=== PATIENT | female | born 1975 | race Hispanic/Latino ===

== ENCOUNTER 2017-08-23 21:41 | Emergency (ER) | payer OTHER ==
[2017-08-23 21:41] VITALS: BMI 30.9
[2017-08-23 21:53] VITALS: O2SAT 99
--- NOTE | 2017-08-23 23:31 | ED PDOC ---
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 Pt states after the flight both legs were slightly swollen. Pt states that after she felt pain in the right foot and now the discomfort is in the right calf. Pt states today it was difficult for her to walk due to calf soreness. Past Medical History Reviewed: Historical Data, Nursing Documentation, Vital Signs Vital Signs: Last Vital Signs Temp 98.3 F 08/23/17 21:49 Pulse 88 08/23/17 21:49 Resp 18 08/23/17 21:49 BP 159/98 H 08/23/17 21:49 Pulse Ox 99 08/23/17 21:49 - Medical History PMH: HTN, Hyperlipidemia - Surgical History Surgical History: Tonsillectomy - Family History Family History: States: No Known Family Hx - Living Arrangements Living Arrangements: With Family - Social History Current smoker - smoking cessation education provided: No Alcohol: None Drugs: Denies - Home Medications Home Medications: Ambulatory Orders Medication Instructions Recorded Atorvastatin [Lipitor] 20 mg PO DAILY 08/23/17 Carvedilol [Coreg] 25 mg PO BID 08/23/17 Losartan [Cozaar] 50 mg PO BID 08/23/17 Multivit-Min/Iron/Folic Acid/K 1 tab PO DAILY 08/23/17 [Adults Multivitamin Caplet] Mycophenolate Sodium [Myfortic] 720 mg PO BID 08/23/17 Nitrofurantoin Macrocrystals 100 mg PO DAILY 08/23/17 [Macrobid] Pantoprazole Sodium [Protonix] 40 mg PO DAILY 08/23/17 Sulfamethoxazole/Trimethoprim 1 tab PO MWF 08/23/17 [Bactrim DS Tab] Tacrolimus [Prograf] 1 mg PO BID 08/23/17 predniSONE [predniSONE Tab] 5 mg PO DAILY 08/23/17 - Allergies Allergies/Adverse Reactions: Allergies Allergy/AdvReac Type Severity Reaction Status Date / Time ampicillin AdvReac VOMITING Verified 08/23/17 21:48 nitroglycerin AdvReac FEVER Verified 08/23/17 21:48 [From Nitroglyn] Review of Systems ROS Statement: Except As Marked, All Systems Reviewed And Found Negative Constitutional: Negative for: Fever, Chills Musculoskeletal: Positive for: Leg Pain Physical Exam - Reviewed Nursing Documentation Reviewed: Yes Vital Signs Reviewed: Yes - Physical Exam Appears: Positive for: Well, Non-toxic, No Acute Distress Head Exam: Positive for: ATRAUMATIC, NORMAL INSPECTION, NORMOCEPHALIC Skin: Positive for: Normal Color, Warm, DRY Eye Exam: Positive for: Normal appearance ENT: Positive for: Normal ENT Inspection Neck: Positive for: Normal, Painless ROM Cardiovascular/Chest: Positive for: Regular Rate, Rhythm Respiratory: Positive for: Normal Breath Sounds. Negative for: Accessory Muscle Use, Respiratory Distress Back: Positive for: Normal Inspection Extremity: Positive for: Normal ROM Neurologic/Psych: Positive for: Alert, Oriented - ECG O2 Sat by Pulse Oximetry: 99 Medical Decision Making Medical Decision Making: Us (-) for DVT Disposition - Clinical Impression Clinical Impression: Calf pain - Disposition Disposition Time: 02:26 Condition: STABLE Instructions: Muscle and Bone Pain (DC) Forms: [employer] (Omani)
[2017-08-24 03:47] VITALS: BP 122/78; PULSE 86; RESP 16; TEMP 98.2
--- NOTE | 2017-08-24 17:02 | US ---
PROCEDURE: Right lower extremity venous duplex Doppler. HISTORY: right leg edema, hx dvt COMPARISON: None available. TECHNIQUE: Common femoral, superficial femoral, popliteal and posterior tibial veins were evaluated. Flow was assessed with color Doppler, compressibility, assessment of phasic flow and augmentation response. FINDINGS: Normal compressibility augmentation is identified at the right lower extremity deep venous system described below. Normal phasic blood flow identified as well as color Doppler appearance. COMMON FEMORAL VEIN: Unremarkable. SUPERFICIAL FEMORAL VEIN: Unremarkable. POPLITEAL VEIN: Unremarkable. POSTERIOR TIBIAL VEIN: Unremarkable. OTHER FINDINGS: None. IMPRESSION: No evidence of deep venous thrombosis in the right lower extremity. Concordant preliminary report from [facility], 08/24/2017.
== END 2017-08-24 02:35 | disposition home or self-care (01) ==
LOC: H.ER 21:41
DX: M79.604 Pain in right leg (principal); E78.5 Hyperlipidemia, unspecified; I10 Essential (primary) hypertension; Z86.718 Personal history of other venous thrombosis and embolism; Z88.0 Allergy status to penicillin

== ENCOUNTER 2018-03-07 08:37 | Emergency (ER) | payer OTHER ==
[2018-03-07 08:46] VITALS: TEMP 97.1; O2SAT 100; BMI 31.9
--- NOTE | 2018-03-07 09:27 | ED PDOC ---
HPI: Chest Pain Time Seen by Provider: 03/07/18 08:51 Chief Complaint (Nursing): Chest Pain Chief Complaint (Provider): Back Pain, Chest Pain, Nausea, Vomiting History Per: Patient History/Exam Limitations: no limitations Onset/Duration Of Symptoms: Hrs (earlier this morning) Current Symptoms Are (Timing): Still Present Additional Complaint(s): 42 year old female presents to the ED for evaluation of back pain radiating to her chest since waking up this morning associated with nausea and vomiting. Patient reports the pain is worse on movement, but otherwise denies shortness of breath. PMD: none provided Past Medical History Reviewed: Historical Data, Nursing Documentation, Vital Signs Vital Signs: Last Vital Signs Temp 97.1 F L 03/07/18 08:45 Pulse 74 03/07/18 08:45 Resp 16 03/07/18 08:45 BP 160/105 H 03/07/18 08:45 Pulse Ox 100 03/07/18 08:45 - Medical History PMH: HTN, Hyperlipidemia Other PMH: Hemolytic Uremic Syndrome - Surgical History Surgical History: Tonsillectomy Other surgeries: kidney transplant - Family History Family History: States: Unknown Family Hx - Home Medications Home Medications: Ambulatory Orders Medication Instructions Recorded Atorvastatin [Lipitor] 20 mg PO DAILY 08/23/17 Carvedilol [Coreg] 25 mg PO BID 08/23/17 Losartan [Cozaar] 50 mg PO BID 08/23/17 Multivit-Min/Iron/Folic Acid/K 1 tab PO DAILY 08/23/17 [Adults Multivitamin Caplet] Mycophenolate Sodium [Myfortic] 720 mg PO BID 08/23/17 Nitrofurantoin Macrocrystals 100 mg PO DAILY 08/23/17 [Macrobid] Pantoprazole Sodium [Protonix] 40 mg PO DAILY 08/23/17 Sulfamethoxazole/Trimethoprim 1 tab PO MWF 08/23/17 [Bactrim DS Tab] Tacrolimus [Prograf] 1 mg PO BID 08/23/17 predniSONE [predniSONE Tab] 5 mg PO DAILY 08/23/17 - Allergies Allergies/Adverse Reactions: Allergies Allergy/AdvReac Type Severity Reaction Status Date / Time ampicillin AdvReac VOMITING Verified 08/23/17 21:48 nitroglycerin AdvReac FEVER Verified 08/23/17 21:48 [From Nitroglyn] Wells Criteria for PE - Wells Criteria for Pulmonary Embolism Clinical Signs and Symptoms of DVT: No P.E is #1 Diagnosis, or Equally Likely: No Heart Rate >100: No Immobilization at least 3 days;Surgery previous 4 weeks: No Previous, objectively diagnosed PE or DVT: No Hemoptysis: No Malignancy w/treatment within 6 months, or palliative: No Total Score: 0 Review of Systems ROS Statement: Except As Marked, All Systems Reviewed And Found Negative Cardiovascular: Positive for: Chest Pain Respiratory: Negative for: Shortness of Breath Gastrointestinal: Positive for: Nausea, Vomiting Musculoskeletal: Positive for: Back Pain (radiating to chest) Physical Exam - Reviewed Nursing Documentation Reviewed: Yes Vital Signs Reviewed: Yes - Physical Exam Appears: Positive for: No Acute Distress Head Exam: Positive for: ATRAUMATIC, NORMOCEPHALIC Skin: Positive for: Normal Color, Warm Eye Exam: Positive for: Normal appearance, EOMI, PERRL Neck: Positive for: Normal, Painless ROM, Supple Cardiovascular/Chest: Positive for: Regular Rate, Rhythm. Negative for: Chest Non Tender (anterior chest wall tenderness) Respiratory: Positive for: Normal Breath Sounds. Negative for: Respiratory Distress Gastrointestinal/Abdominal: Positive for: Normal Exam, Soft. Negative for: Tenderness Back: Positive for: Normal Inspection. Negative for: L CVA Tenderness, R CVA Tenderness, Vertebral Tenderness Extremity: Positive for: Normal ROM Neurologic/Psych: Positive for: Alert, Oriented (x3). Negative for: Motor/Sensory Deficits - Laboratory Results Result Diagrams: 03/07/18 09:23 03/07/18 10:18 - ECG ECG: Positive for: Interpreted By Me, Viewed By Me ECG Rhythm: Positive for: Normal QRS, Normal ST Segment, Sinus Rhythm (normal). Negative for: ST/T Changes O2 Sat by Pulse Oximetry: 100 (RA) Pulse Ox Interpretation: Normal - Progress Re-evaluation Time: 11:00 Condition: Unchanged - Critical Care Total Time (In Min): 60 Documented Critical Care: Time excludes all time spent performint seperately billable procedures Medical Decision Making Medical Decision Making: Time: 858 Initial Impression: chest wall pain, nausea Initial Plan: --CMP --Trop I --U-preg --CBC with differential --CXR --Zofran 4mg IVP 1008 Persistent nausea and back pain radiating to chest prompted repeat EKG which reveals deeply inverted t waves in 2 3 avf with s/t elevations in 1 and avl. Code Heart activated. 1012 Additional orders: --CT angiography dissection protocol, as per the request of lead project engineer Dr. Villar to r/o dissection prior to cathlab transfer --CXR --Labetalol 20mg IVP as BP elevated 160/105 --BMP --Trop I --CBC with differential --PT / PTT 1026 CXR reviewed by this provider. No significant widening of the mediastinum, however CT results still pending. 1045 Dr Villar reviewd EKGs and agrees EKG does reflect a STEMI. He accepts the transfer to cathlab at [facility]. Still awaiting CT angio results. Plavix held due to concern for dissection. Pt left for crime lab technician before results of CT available. Saw Runner notified. Scribe Attestation: Documented by Louann Plascencia, acting as a scribe for Chuy Valera MD. Provider Scribe Attestation: All medical record entries made by the Scribe were at my direction and personally dictated by me. I have reviewed the chart and agree that the record a ccurately reflects my personal performance of the history, physical exam, medical decision making, and the department course for this patient. I have also personally directed, reviewed, and agree with the discharge instructions and disposition. Disposition - Clinical Impression Clinical Impression: STEMI (ST elevation myocardial infarction) - Patient ED Disposition Is Patient to be Admitted: Yes - Disposition Disposition: Other Institution Disposition Time: 10:30 Condition: GUARDED Forms: [employer] (Lithuanian) - Pt Status Changed To: Hospital Disposition Of: Inpatient - Admit Certification Admit to Inpatient:: After my assessment, the patient will require hospitalization for at least two midnights. This is because of the severity of symptoms shown, intensity of services needed, and/or the medical risk in this patient being treated as an outpatient. - POA Present On Arrival: None
[2018-03-07] MEDS ORDERED: Labetalol 5 mg/ml Inj 20ML IVP STA ×2 (10:14→10:44)
[2018-03-07] MEDS ORDERED: Labetalol 5mg/ml (4ml) ONE ×2 (10:17→10:49)
[2018-03-07 10:18] LABS: BASO # 0.3 K/uL (0.0-0.2); EOS # 0.1 K/uL (0.0-0.7); EOS % 0.9 % (0.0-4.0); HEMOGLOBIN 13.2 g/dL (12.0-16.0); LYMPH # 2.1 K/uL (1.0-4.3); LYMPH % 16.3 % (20.0-40.0); MEAN CELL VOLUME 86.7 fl (81.0-99.0); MEAN CORPUSCULAR HEMOGLOBIN 28.4 pg (27.0-31.0); MEAN CORPUSCULAR HGB CONC 32.8 g/dL (33.0-37.0); MEAN PLATELET VOLUME 9.1 fl (7.2-11.7); MONO # 0.9 K/uL (0.0-0.8); MONO % 7.3 % (0.0-10.0); NEUT # 9.5 K/uL (1.8-7.0); NEUT % 73.5 % (50.0-75.0); NRBC % 0.1 % (0.0-0.0); RBC 4.64 Mil/uL (3.80-5.20); RED CELL DISTRIBUTION WIDTH 14.3 % (11.5-14.5); WHITE BLOOD COUNT 12.9 K/uL (4.8-10.8)
[2018-03-07] MEDS ORDERED: Iodixanol 320 MG/ML 100 ML BOTTLE IV ONE (10:28)
[2018-03-07] MEDS ORDERED: Sodium Chloride 0.9% 50 ML IV ONE (10:28)
[2018-03-07 10:36] VITALS: RESP 20
[2018-03-07 10:37] LABS: BLOOD UREA NITROGEN 14 mg/dl (7-17); CALCIUM 7.7 mg/dL (8.4-10.2); GFR NON-AFRICAN AMERICAN > 60
--- NOTE | 2018-03-07 10:49 | RAD ---
Date of service: 03/07/2018 HISTORY: Back pain COMPARISON: No prior study available for comparison heart size is upper limits FINDINGS: LUNGS: No active pulmonary disease. PLEURA: No significant pleural effusion identified, no pneumothorax apparent. CARDIOVASCULAR: Minimal aortic atherosclerotic calcification present. Heart size upper limits of normal-borderline enlarged. No pulmonary vascular congestion. OSSEOUS STRUCTURES: No significant abnormalities. VISUALIZED UPPER ABDOMEN: Normal. OTHER FINDINGS: None. IMPRESSION: No active disease.
[2018-03-07] MEDS ORDERED: Labetalol 5mg/ml (4ml) IVP STA ×2 (10:59→11:00)
[2018-03-07 11:05] LABS: ALB/GLOB RATIO 1.2 (1.0-2.1); ALBUMIN 3.2 g/dL (3.5-5.0); ALT/SGPT 22 U/L (9-52); AST/SGOT 21 U/L (14-36)
[2018-03-07] MEDS ORDERED: Sodium Chloride 0.9% 1,000 ML IV STA (11:09)
--- NOTE | 2018-03-07 11:23 | CT ---
PROCEDURE: CT Angiography Chest, Abdomen and Pelvis with and without intravenous contrast HISTORY: Back pain COMPARISON: None. TECHNIQUE: Contiguous axial images of the chest, abdomen and pelvis were obtained in the phase of aortic enhancement. A noncontrast enhanced CT of the chest was also obtained to evaluate for possible intramural thrombus. Coronal and sagittal reformats were generated. IV dose administered: 100 cc Visipaque 320 Radiation dose: Total exam DLP = 972.81 mGy-cm. This CT exam was performed using one or more of the following dose reduction techniques: Automated exposure control, adjustment of the mA and/or kV according to patient size, and/or use of iterative reconstruction technique. FINDINGS: CT ANGIOGRAPHY OF THE CHEST WITH & WITHOUT CONTRAST: AORTA (CHEST AND ABDOMEN): The thoracic and abdominal aorta are unremarkable, without aneurysm, dissection or rupture. No intramural thrombus identified in the thoracic aorta on the non-contrast ct of the chest. Incidental note made of tiny focus of calcified atherosclerotic plaque along the inferior and lateral on margin of the aortic arch. The celiac axis, superior mesenteric artery, inferior mesenteric artery and the renal arteries are widely patent. The pelvic arteries are unremarkable. LUNGS: Minimal scarring changes seen in the left lingular region and right lung base.. MEDIASTINUM: Unremarkable. Normal caliber aorta and pulmonary arterial trunk. No aortic dissection.. No evidence of large acute central pulmonary embolus. Heart size is mildly enlarged. Coronary artery calcifications are present... LYMPH NODES: Unremarkable. Small hiatal hernia with slight wall thickening of distal esophagus likely due to protrusion gastric mucosa. Possibility of esophagitis not excluded. PLEURA: Unremarkable. No pneumothorax. No pleural fluid. BONES: Minor multilevel degenerative spondylosis of the thoracic spine OTHER FINDINGS: None. CT ANGIOGRAPHY OF THE ABDOMEN AND PELVIS WITH CONTRAST: LIVER: Unremarkable. No gross lesion or ductal dilatation. GALLBLADDER AND BILE DUCTS: Gallbladder is moderately distended.. PANCREAS: Unremarkable. No gross lesion or ductal dilatation. SPLEEN: Unremarkable. ADRENALS: No adrenal lesions.. KIDNEYS AND URETERS: The [place] kidneys are slightly atrophic with cortical volume loss. There are renal vascular calcifications. Small nonobstructive calcification noted along the cortex lower pole right kidney. I dye... Multiple small on bilateral renal cysts are present. There is a left-sided pelvic transplant kidney present with prominent on left renal collecting system.. VASCULATURE: Unremarkable. No aortic aneurysm. Mild aortic atherosclerotic calcification or mural plaque present. STOMACH AND BOWEL: Unremarkable. No obstruction. No gross mural thickening. APPENDIX: No evidence of acute appendicitis. Normal appendix of best seen on axial image number [id number].. PERITONEUM: No gross free intraperitoneal air. There does appear to be a small amount of fluid seen in the right pericolic gutter extending anteriorly into the anterior pelvis.. Small fat containing umbilical hernia. LYMPH NODES: Unremarkable. No enlarged lymph nodes. BLADDER: Unremarkable. REPRODUCTIVE: Unremarkable. BONES: Minimal multilevel degenerative spondylosis of the lumbar spine.. OTHER FINDINGS: None. IMPRESSION: No evidence of aortic dissection. No evidence of large acute central pulmonary embolus. Atrophic [place] kidneys with the multiple small bilateral renal cysts. Left transplant kidney in the left aspect of the pelvis that exhibits prominent appearing collecting system and left renal pelvis. Mild cardiomegaly.
[2018-03-07 12:13] VITALS: BP 171/108; PULSE 108
--- NOTE | 2018-03-08 21:00 | CARD ---
APPROVED REPORT Date of service: 03/07/2018 EKG Measurement Heart [id number] VT 148P44 [id number] <Conclusion> Normal sinus rhythm Minimal voltage criteria for LVH, may be normal variant Septal infarct, age undetermined Lateral injury pattern ACUTE [place] / STEMI Abnormal ECG
--- NOTE | 2018-03-08 21:02 | CARD ---
APPROVED REPORT Date of service: 03/07/2018 EKG Measurement Heart [id number] CO 144P34 [id number] <Conclusion> Normal sinus rhythm Minimal voltage criteria for LVH, may be normal variant Septal infarct, age undetermined Abnormal ECG
== END 2018-03-07 10:50 | disposition short-term general hospital (02) ==
LOC: H.ER 08:37
DX: I21.3 ST elevation (STEMI) myocardial infarction of unspecified site (principal); E78.5 Hyperlipidemia, unspecified; I10 Essential (primary) hypertension; Z88.0 Allergy status to penicillin; Z94.0 Kidney transplant status
CPT/HCPCS: 71045; 71275; 74175; 80053; 81025; 84484; 85025; 93005; 96374; 96375; 96376; 99284; J2405; J7030; Q9967